=== PATIENT | female | born 1975 ===

== ENCOUNTER 2016-08-31 20:15 | Emergency (ER) | payer OTHER ==
[2016-08-31 20:32] VITALS: BP 137/81; PULSE 84; RESP 20; TEMP 98.1; O2SAT 99
[2016-08-31] MEDS ORDERED: Dexamethasone 4 mg/1 ml IM STA (21:03)
[2016-08-31] MEDS ORDERED: Dexamethasone 4 mg/1 ml ONE (21:06)
--- NOTE | 2016-08-31 21:43 | C.PDOC ---
History Of Present Illness 40 year old female with a history of Lupus and currently not on medications, presents to the ED with complaints of a rash to her face and pain to her left neck and left shoulder for the past 2 days. Patient states the pain is worse with movement of her left shoulder and neck. Denies trauma, chest pain, SOB, numbness, weakness, or any other complaints at this time. Time Seen by Provider: 08/31/16 20:35 Chief Complaint (Nursing): Back Pain History Per: Patient History/Exam Limitations: no limitations Onset/Duration Of Symptoms: Days Current Symptoms Are (Timing): Still Present Quality Of Discomfort: "Pain" Associated Symptoms: None Exacerbating Factor(s): Movement Recent travel outside of the [place]: No Past Medical History Reviewed: Historical Data, Nursing Documentation, Vital Signs Vital Signs: Last Vital Signs Temp 98.1 F 08/31/16 20:31 Pulse 84 08/31/16 20:31 Resp 20 08/31/16 20:31 BP 137/81 08/31/16 20:31 Pulse Ox 99 09/01/16 02:30 - Medical History PMH: Asthma Surgical History: No Surg Hx Family History: States: No Known Family Hx - Social History Hx Tobacco Use: Yes Hx Alcohol Use: No Hx Substance Use: No - Immunization History Hx Tetanus Toxoid Vaccination: No Hx Influenza Vaccination: No Hx Pneumococcal Vaccination: No Review Of Systems Except As Marked, All Systems Reviewed And Found Negative. Constitutional: Negative for: Fever, Chills Cardiovascular: Negative for: Chest Pain Respiratory: Negative for: Shortness of Breath Musculoskeletal: Positive for: Neck Pain (+Left neck pain), Shoulder Pain (+ Left shoulder pain) Skin: Positive for: Rash (+Rash to face) Neurological: Negative for: Weakness, Numbness Physical Exam - Physical Exam Appears: Non-toxic, No Acute Distress Skin: Warm, Dry, Rash (+Malar rash to the bilateral cheeks) Head: Atraumatic, Normacephalic Eye(s): bilateral: Normal Inspection Oral Mucosa: Moist Neck: No Midline Cervical Tenderness, Paracervical Tenderness (+Left sided paracervical tenderness), Supple Chest: Symmetrical, No Deformity Cardiovascular: Rhythm Regular Respiratory: Normal Breath Sounds, No Accessory Muscle Use, No Rales, No Rhonchi , No Wheezing Gastrointestinal/Abdominal: Soft, No Tenderness Extremity: No Normal ROM (Limited ROM to the left shoulder secondary to pain), Capillary Refill (< 2 seconds), No Deformity, No Swelling Pulses: Left Radial: Normal, Right Radial: Normal Neurological/Psych: Oriented x3, Normal Speech, Normal Cognition, Normal Sensation Gait: Steady ED Course And Treatment O2 Sat by Pulse Oximetry: 99 (Room air) Pulse Ox Interpretation: Normal Medical Decision Making Medical Decision Making: Plan: Decadron Toradol Reassess Progress: On re-exam, the patient reports improvement of symptoms. Lungs remain CTA, heart is RRR, airways are patent. Abdomen is soft, non-tender and the patient tolerating PO well. Follow up with the medical doctor within 1-2 days without fail. Return if worsened. Disposition - Disposition Referrals: Hiwot Chairez MD [Staff Provider] - Miguel Elizabeth MD [Medical Doctor] - Disposition: HOME/ ROUTINE Disposition Time: 21:41 Condition: GOOD Additional Instructions: Follow up with the Recycling Assistant within 1-2 days without fail. Return if worsened. Prescriptions: Cyclobenzaprine [Flexeril] 5 mg PO TID #21 tab Naproxen [Naprosyn] 500 mg PO BID #20 tab predniSONE [Prednisone] 20 mg PO BID #10 tab Instructions: Autoimmune Disease (ED) - Clinical Impression Clinical Impression: Systemic lupus erythematosus arthritis, Neck pain - PA / LOAN ADVISER / Resident Statement MD/DO has reviewed & agrees with the documentation as recorded. - Scribe Statement The provider has reviewed the documentation as recorded by the Scribe Perry Johnson. All medical record entries made by the Scribe were at my direction and personally dictated by me. I have reviewed the chart and agree that the record accurately reflects my personal performance of the history, physical exam, medical decision making, and the department course for this patient. I have also personally directed, reviewed, and agree with the discharge instructions and disposition.
== END 2016-08-31 22:14 | disposition home or self-care (01) ==
LOC: C.ER 20:15
DX: M32.9 Systemic lupus erythematosus, unspecified (principal); M13.88 Other specified arthritis, other site; M54.2 Cervicalgia
CPT/HCPCS: 96372; 99283; J1100; J1885

== ENCOUNTER 2017-01-01 21:57 | Emergency (ER) | payer OTHER ==
[2017-01-01 22:41] VITALS: BP 123/87; PULSE 95; RESP 16; TEMP 98; O2SAT 98
== END 2017-01-01 23:10 | disposition left against medical advice (07) ==
LOC: C.ER 21:57
DX: M79.606 Pain in leg, unspecified (principal); Z02.9 Encounter for administrative examinations, unspecified

== ENCOUNTER 2017-09-14 16:12 | Emergency (ER) | payer OTHER ==
[2017-09-14 16:21] VITALS: BMI 29.2
[2017-09-14 16:26] VITALS: O2SAT 100
[2017-09-14] MEDS ORDERED: Sodium Chloride 0.9% 1,000 ML IV ONE (16:33)
[2017-09-14 16:40] LABS: BASO # 0.1 K/uL (0.0-0.2); BASO % 0.7 % (0.0-2.0); EOS # 0.2 K/uL (0.0-0.7); EOS % 2.3 % (0.0-4.0); HEMOGLOBIN 14.4 g/dL (11.0-16.0); LYMPH # 2.3 K/uL (1.0-4.3); LYMPH % 26.6 % (20.0-40.0); MEAN CELL VOLUME 90.7 fL (81.0-99.0); MEAN CORPUSCULAR HEMOGLOBIN 30.9 pg (27.0-31.0); MEAN CORPUSCULAR HGB CONC 34.1 g/dL (33.0-37.0); MEAN PLATELET VOLUME 6.8 fL (7.2-11.7); MONO # 0.5 K/uL (0.0-0.8); NEUT # 5.5 K/uL (1.8-7.0); NEUT % 64.4 % (50.0-75.0); RBC 4.66 Mil/uL (3.80-5.20); RED CELL DISTRIBUTION WIDTH 13.9 % (11.5-14.5); WHITE BLOOD COUNT 8.5 K/uL (4.8-10.8)
[2017-09-14] MEDS ORDERED: Sodium Chloride 0.9% 1,000 ML ONE (16:42)
[2017-09-14 16:52] LABS: PROTHROMBIN TIME 11.7 SECONDS (9.7-12.2)
[2017-09-14 16:53] LABS: ALB/GLOB RATIO 1.2 (1.0-2.1); ALBUMIN 4.1 g/dL (3.5-5.0); ALT/SGPT 20 U/L (9-52); AST/SGOT 21 U/L (14-36); BLOOD UREA NITROGEN 8 mg/dL (7-17); CALCIUM 8.8 mg/dl (8.6-10.4); GFR AFRICAN-AMERICAN > 60; GFR NON-AFRICAN AMERICAN > 60
--- NOTE | 2017-09-14 17:11 | RAD ---
PROCEDURE: CHEST RADIOGRAPH, 1 VIEW HISTORY: SOB COMPARISON: Comparison chest 06/08/2013 FINDINGS: LUNGS: Poor inspiration with low lung volumes, crowded bronchovascular markings and mild bibasilar atelectasis. The interstitial markings are also slightly increased and coarsened which may be secondary to poor inspiration however rule out sequela of reactive/ inflammatory airway disease or viral illness. PLEURA: No pneumothorax or pleural fluid seen. CARDIOVASCULAR: Normal. OSSEOUS STRUCTURES: No significant abnormalities. VISUALIZED UPPER ABDOMEN: Normal. OTHER FINDINGS: None. IMPRESSION: Poor inspiration with low lung volumes, crowded bronchovascular markings and mild bibasilar atelectasis. The interstitial markings are also slightly increased and coarsened which may be secondary to poor inspiration however rule out sequela of reactive/ inflammatory airway disease or viral illness.
--- NOTE | 2017-09-14 17:53 | C.PDOC ---
History Of Present Illness 41yo female, presents to the emergency department with complaints of left chest discomfort intermittently for many years. Patient also notes minor dysfunctional uterine bleeding x3 weeks. States she felt dizzy today, and developed weakness, prompting visit. Patient has had multiple prior evaluations for same complaint. Time Seen by Provider: 09/14/17 16:26 Chief Complaint (Nursing): Chest Pain Past Medical History Vital Signs: Last Vital Signs Temp 99.1 F 09/14/17 17:59 Pulse 80 09/14/17 17:59 Resp 18 09/14/17 17:59 BP 126/85 09/14/17 17:59 Pulse Ox 100 09/14/17 17:59 - Medical History PMH: Asthma Surgical History: Tonsillectomy Family History: States: Unknown Family Hx - Social History Hx Tobacco Use: Yes Hx Alcohol Use: No Hx Substance Use: No - Immunization History Hx Tetanus Toxoid Vaccination: No Hx Influenza Vaccination: No Hx Pneumococcal Vaccination: No Review Of Systems Constitutional: Negative for: Fever Cardiovascular: Positive for: Chest Pain (left sided). Negative for: Palpitations Respiratory: Negative for: Shortness of Breath Gastrointestinal: Negative for: Vomiting Genitourinary: Positive for: Other (uterine bleeding ) Neurological: Positive for: Weakness, Dizziness. Negative for: Headache Physical Exam - Physical Exam Appears: Non-toxic, No Acute Distress Skin: Warm, Dry, No Rash Head: Normacephalic Eye(s): bilateral: PERRL Nose: Normal Oral Mucosa: Moist Lips: Normal Appearing Neck: Normal ROM Cardiovascular: Rhythm Regular, No Murmur Respiratory: Normal Breath Sounds, No Accessory Muscle Use Extremity: Normal ROM, No Deformity, No Swelling Neurological/Psych: Oriented x3, Normal Speech ED Course And Treatment - Laboratory Results Result Diagrams: 09/14/17 16:37 09/14/17 16:37 Lab Interpretation: Normal ECG: Interpreted By Me ECG Rhythm: Sinus Rhythm ECG Interpretation: Normal Rate From EC O2 Sat by Pulse Oximetry: 100 (RA) Pulse Ox Interpretation: Normal - Radiology CXR: Interpreted by Me CXR Interpretation: Yes: No Acute Disease Progress Note: IVF Reevaluation Time: 17:54 Reassessment Condition: Improved (sleeping comfortably) Medical Decision Making Medical Decision Making: vague CP, many prior presentations for same: anxiety vs GERD HGB 14.4, no sig drop to support significant DUB x 3 weeks. Disposition Doctor Will See Patient In The: Office Counseled Patient/Family Regarding: Studies Performed, Diagnosis - Disposition Referrals: [facility] [Outside] [email or web address] [Outside] Disposition: HOME/ ROUTINE Disposition Time: 17:54 Condition: GOOD Additional Instructions: normal evaluation, HGB 14.4 is normal follow-up with TEMPLATE STORAGE CLERK as needed Instructions: Acid Reflux (Gastroesophageal Reflux Disease), Adult (DC) Forms: [employer] (Indonesian) - Clinical Impression Clinical Impression: Chest discomfort, DUB (dysfunctional uterine bleeding) - Scribe Statement The provider has reviewed the documentation as recorded by the Scribe (Cong Ortiz) All medical record entries made by the Scribe were at my direction and personally dictated by me. I have reviewed the chart and agree that the record accurately reflects my personal performance of the history, physical exam, medical decision making, and the department course for this patient. I have also personally directed, reviewed, and agree with the discharge instructions and disposition.
[2017-09-14 18:00] VITALS: BP 126/85; PULSE 80; RESP 18; TEMP 99.1
--- NOTE | 2017-09-17 22:08 | CARD ---
APPROVED REPORT EKG Measurement Heart [id number] <Conclusion> Normal sinus rhythm Normal ECG
== END 2017-09-14 18:01 | disposition home or self-care (01) ==
LOC: C.ER 16:12
DX: N93.8 Other specified abnormal uterine and vaginal bleeding (principal); R07.89 Other chest pain; Z72.0 Tobacco use
CPT/HCPCS: 71045; 80053; 83880; 84484; 85025; 85610; 85730; 93005; 96360; 99285; J7040

== ENCOUNTER 2017-11-24 07:16 | Emergency (ER) | payer OTHER ==
[2017-11-24 07:16] VITALS: BMI 29.2
[2017-11-24 07:31] VITALS: BP 131/89; PULSE 80; RESP 18; TEMP 97.9; O2SAT 99
--- NOTE | 2017-11-24 07:49 | C.PDOC ---
History Of Present Illness 41 yo female w/PMHx of SLE come in for evaluation of gradual onset of facial swelling, B/L hands swelling developed since yesterday. Pt has known allergy to shellfish but denies any known exposure. Pt sts, " had sandwich at [employer] and when I was eating it my mouth and tongue felt funny already". Pt admits, took Benadryl at home yesterday without significant improvement. Otherwise, pt denies fever, chills, recent illness or new medication use, throat tightness or swelling, drooling, dysphagia, dyspnea, CP, SOB, wheezing, cough, abd. pain, N?V /D, denies any other active complaints. Ambulate to ED for evaluation, not in any apparent distress. Time Seen by Provider: 11/24/17 07:19 Chief Complaint (Nursing): Allergic Reaction History Per: Patient Past Medical History Reviewed: Historical Data, Nursing Documentation, Vital Signs Vital Signs: Last Vital Signs Temp 97.9 F 11/24/17 07:28 Pulse 80 11/24/17 07:28 Resp 18 11/24/17 07:28 BP 131/89 11/24/17 07:28 Pulse Ox 99 11/24/17 07:28 - Medical History PMH: Asthma Other PMH: SLE Surgical History: Tonsillectomy Family History: States: Unknown Family Hx - Social History Hx Tobacco Use: Yes Hx Alcohol Use: No Hx Substance Use: No - Immunization History Hx Tetanus Toxoid Vaccination: No Hx Influenza Vaccination: No Hx Pneumococcal Vaccination: No Review Of Systems Except As Marked, All Systems Reviewed And Found Negative. Constitutional: Negative for: Fever, Chills Eyes: Positive for: Other (periorbital edema B/L). Negative for: Vision Change ENT: Positive for: Mouth Swelling (B/L lips). Negative for: Ear Discharge, Nose Discharge, Nose Congestion, Throat Pain, Throat Swelling Cardiovascular: Negative for: Chest Pain Respiratory: Negative for: Cough, Shortness of Breath, Wheezing Gastrointestinal: Negative for: Nausea, Vomiting, Abdominal Pain, Diarrhea Genitourinary: Negative for: Dysuria Skin: Negative for: Rash Neurological: Negative for: Headache, Dizziness Physical Exam - Physical Exam Appears: Well, Non-toxic, No Acute Distress Skin: Normal Color, Warm, No Rash Head: Normacephalic Eye(s): bilateral: PERRL, EOMI (no pain or limitation on extraocular movement B/ L), Other (mild periorbital edema, no erythema, no conjunctival injection or discharge.) Ear(s): Bilateral: Normal Nose: No Flaring, No Discharge Oral Mucosa: Moist, No Drooling, No Trismus Tongue: No Swelling Lips: Swelling (mild diffuse edema upper and lower) Throat: No Erythema, No Drooling, Other (uvula midline, no edema.) Neck: Trachea Midline, Supple Chest: Symmetrical Cardiovascular: Rhythm Regular Respiratory: No Decreased Breath Sounds, No Accessory Muscle Use, No Rales, No Rhonchi, No Stridor, No Wheezing Gastrointestinal/Abdominal: Soft, No Tenderness, No Distention, No Guarding Back: No CVA Tenderness Extremity: Normal ROM, No Deformity, No Swelling Neurological/Psych: Oriented x3, Normal Speech ED Course And Treatment O2 Sat by Pulse Oximetry: 99 Pulse Ox Interpretation: Normal Progress Note: On re-eval, pt is afebrile, hemodynamicaly stable. Non-toxic. PulsEOx 99% RA. ENT: no acute findings. neck: SUpple, (-) JVD, (-) carotid bruits B/L. Lungs: CTA B/L, BS equal B/L. Abd: benign. Neuorlogicaly intact. Pt has clinical finidngs c/w angioedema. Pt advised. ref. to F/u with PMD, cardiovascular surgical tech in 2 -3 days for re-eavl. return if any new changes. Disposition Counseled Patient/Family Regarding: Diagnosis, Need For Followup, Rx Given - Disposition Referrals: [facility] [Outside] Disposition: HOME/ ROUTINE Disposition Time: 07:45 Condition: STABLE Additional Instructions: Avoid food, drink possible cause allergic reaction Take medication as prescribed Follow up with PMD, Site Director in 2-3 days for re-evaluation. return to ED if any worsening or new changes. Prescriptions: DiphenhydrAMINE [Benadryl] 25 mg PO BID #10 cap Famotidine [Pepcid] 20 mg PO BID #10 tab Prednisone [Deltasone] 40 mg PO DAILY #6 tablet Instructions: Angioedema (DC) - Clinical Impression Clinical Impression: Angioedema
== END 2017-11-24 08:07 | disposition home or self-care (01) ==
LOC: C.ER 07:16
DX: T78.3XXA Angioneurotic edema, initial encounter (principal)

== ENCOUNTER 2017-12-07 12:11 | Emergency (ER) | payer OTHER ==
[2017-12-07 12:11] VITALS: BMI 29.2
[2017-12-07 12:35] VITALS: BP 128/76; PULSE 88; RESP 18; TEMP 98.1; O2SAT 95
--- NOTE | 2017-12-07 13:39 | C.PDOC ---
Time Seen by Provider: 12/07/17 12:39 Chief Complaint (Nursing): Headache Past Medical History Vital Signs: Last Vital Signs Temp 98.1 F 12/07/17 12:32 Pulse 88 12/07/17 12:32 Resp 18 12/07/17 12:32 BP 128/76 12/07/17 12:32 Pulse Ox 95 12/13/17 19:28 - Medical History PMH: Asthma Surgical History: Tonsillectomy Family History: States: Unknown Family Hx - Social History Hx Tobacco Use: Yes Hx Alcohol Use: No Hx Substance Use: No - Immunization History Hx Tetanus Toxoid Vaccination: No Hx Influenza Vaccination: No Hx Pneumococcal Vaccination: No ED Course And Treatment O2 Sat by Pulse Oximetry: 95 Medical Decision Making Medical Decision Making: pt not found on stretcher assigned. lwbs Disposition - Disposition Disposition: LEFT W/O BEING SEEN - ER ONLY Disposition Time: 13:05 Condition: UNKNOWN Forms: [employer] (Chilean) - Clinical Impression Clinical Impression: Patient left without being seen, Headache
== END 2017-12-07 13:01 | disposition left against medical advice (07) ==
LOC: C.ER 12:11
DX: Z02.89 Encounter for other administrative examinations (principal); R51 Headache

== ENCOUNTER 2018-01-21 20:52 | Emergency (ER) | payer OTHER ==
[2018-01-21 20:52] VITALS: BMI 29.2
[2018-01-21 21:11] VITALS: RESP 20; TEMP 98.3
--- NOTE | 2018-01-21 21:36 | C.PDOC ---
History Of Present Illness 42 y/o female with a hx of lupus, presents to the ER today after questionable seizure. Patient reports she was cooking dinner and the next thing she remembers is waking up on the ground. Spouse reports he watched the patient fall to the ground and begin shaking. He reports the patient then stopped shaking, opened eyes, and was confused for a prolonged period of time. Denies any urinary/bowel incontinence or tongue biting. Denies history of seizures. Reports history of chronic headaches that she has never been evaluated for. Denies daily alcohol use. Denies any drug use. Reports that she has at baseline today. Denies fever, cough,uri, nausea/vomiting, focal weakness. Time Seen by Provider: 01/21/18 20:56 Chief Complaint (Nursing): Seizure History Per: Patient History/Exam Limitations: no limitations Recent Seizure Activity Began: Just Before Arrival Number Of Seizures: One Precipitating Factor(s): None Additional History Per: Family Past Medical History Reviewed: Historical Data, Nursing Documentation, Vital Signs Vital Signs: Last Vital Signs Temp 98.3 F 01/21/18 21:02 Pulse 98 H 01/21/18 21:02 Resp 20 01/21/18 21:02 BP 140/88 01/21/18 21:02 Pulse Ox 96 01/22/18 00:44 - Medical History PMH: Asthma Denies: Seizures Surgical History: Tonsillectomy Family History: States: Unknown Family Hx - Social History Hx Tobacco Use: Yes Hx Alcohol Use: No Hx Substance Use: No (denies) - Immunization History Hx Tetanus Toxoid Vaccination: No Hx Influenza Vaccination: No Hx Pneumococcal Vaccination: No Review Of Systems Except As Marked, All Systems Reviewed And Found Negative. Constitutional: Negative for: Fever Eyes: Negative for: Vision Change ENT: Negative for: Other (tongue biting) Cardiovascular: Negative for: Chest Pain Respiratory: Negative for: Shortness of Breath Genitourinary: Negative for: Incontinence Musculoskeletal: Negative for: Back Pain Skin: Negative for: Lesions Neurological: Positive for: Seizures. Negative for: Weakness, Numbness, Incoordination, Change in Speech, Dizziness Physical Exam - Physical Exam Appears: Non-toxic, No Acute Distress Skin: Normal Color, Warm, Dry, No Ecchymosis Head: Atraumatic, Normacephalic, No Swelling, No Laceration Eye(s): bilateral: Normal Inspection (no nystagmus), PERRL, EOMI Nose: Normal Oral Mucosa: Moist Tongue: Normal Appearing, No Bite Teeth: Normal Dentition Neck: Normal ROM, No Midline Cervical Tenderness, Supple Chest: Symmetrical Cardiovascular: Rhythm Regular, No Murmur Respiratory: Normal Breath Sounds, No Rhonchi, No Wheezing Gastrointestinal/Abdominal: Soft, No Tenderness, No Distention Back: Normal Inspection, No Vertebral Tenderness Extremity: Bilateral: Atraumatic, Normal Color And Temperature, Normal ROM Pulses: Left Dorsalis Pedis: Normal, Right Dorsalis Pedis: Normal Neurological/Psych: Oriented x3, Normal Speech, Normal Cranial Nerves (2-12 intact), Normal Motor, Normal Sensation, Other (No focal deficits) Gait: Steady ED Course And Treatment - Laboratory Results Result Diagrams: 01/21/18 21:37 01/21/18 21:37 O2 Sat by Pulse Oximetry: 96 (RA) Pulse Ox Interpretation: Normal Medical Decision Making Medical Decision Making: Impression: New-onset seizures Initial Plan: --EKG --CT Head w/o contrast --Blood work --Chest X-Ray Patient instructed on the importance of not driving until after follow up with neurology. 12:20 EKG shows NSR at 78bpm with normal intervals and no st changes. Electrolytes WNL. Trop x [address] head negative. Spoke to Dr. Hudson who reports that he can see the patient in the office on or saturday. Disposition - Disposition Referrals: Nick Hudson MD [Staff Provider] - Disposition: HOME/ ROUTINE Disposition Time: 00:21 Condition: GOOD Additional Instructions: NO DRIVING UNTIL CLEARED BY NEUROLOGY TO DRIVE. Follow-up with neurology within 2 days. Return to ED if condition worsens. Instructions: Seizures, Adult (DC) Forms: [employer] (New Zealander) - Clinical Impression Clinical Impression: Seizure - Scribe Statement The provider has reviewed the documentation as recorded by the Scribe (Gracie Nelson) Provider Attestation: All medical record entries made by the Scribe were at my direction and personally dictated by me. I have reviewed the chart and agree that the record accurately reflects my personal performance of the history, physical exam, medical decision making, and the department course for this patient. I have also personally directed, reviewed, and agree with the discharge instructions and disposition.
[2018-01-21 21:42] LABS: BASO # 0.1 K/uL (0.0-0.2); BASO % 0.5 % (0.0-2.0); EOS # 0.2 K/uL (0.0-0.7); EOS % 2.2 % (0.0-4.0); HEMOGLOBIN 13.6 g/dL (11.0-16.0); LYMPH # 2.6 K/uL (1.0-4.3); LYMPH % 24.3 % (20.0-40.0); MEAN CELL VOLUME 90.4 fL (81.0-99.0); MEAN CORPUSCULAR HEMOGLOBIN 30.6 pg (27.0-31.0); MEAN CORPUSCULAR HGB CONC 33.9 g/dL (33.0-37.0); MEAN PLATELET VOLUME 6.9 fL (7.2-11.7); MONO # 0.7 K/uL (0.0-0.8); MONO % 6.9 % (0.0-10.0); NEUT # 7.2 K/uL (1.8-7.0); NEUT % 66.1 % (50.0-75.0); RBC 4.45 Mil/uL (3.80-5.20); RED CELL DISTRIBUTION WIDTH 13.8 % (11.5-14.5); WHITE BLOOD COUNT 10.8 K/uL (4.8-10.8)
[2018-01-21 22:05] LABS: ALB/GLOB RATIO 1.5 (1.0-2.1); ALBUMIN 4.4 g/dL (3.5-5.0); ALT/SGPT 20 U/L (9-52); AST/SGOT 27 U/L (14-36); BLOOD UREA NITROGEN 14 mg/dL (7-17); CALCIUM 9.4 mg/dl (8.6-10.4); GFR NON-AFRICAN AMERICAN > 60
[2018-01-22 01:15] VITALS: BP 136/72; PULSE 92; O2SAT 98
--- NOTE | 2018-01-22 06:52 | CT ---
Date of service: 01/21/2018 PROCEDURE: CT HEAD WITHOUT CONTRAST. HISTORY: seizure COMPARISON: None available. TECHNIQUE: Axial computed tomography images were obtained through the head/brain without intravenous contrast. Radiation dose: Total exam DLP = 772 mGy-cm. This CT exam was performed using one or more of the following dose reduction techniques: Automated exposure control, adjustment of the mA and/or kV according to patient size, and/or use of iterative reconstruction technique. FINDINGS: HEMORRHAGE: No intracranial hemorrhage. BRAIN: No mass effect or edema. No atrophy or chronic microvascular ischemic changes. VENTRICLES: Unremarkable. No hydrocephalus. CALVARIUM: Unremarkable. PARANASAL SINUSES: Mild mucosal thickening of the ethmoid air cells. MASTOID AIR CELLS: Unremarkable as visualized. No inflammatory changes. OTHER FINDINGS: None. IMPRESSION: No acute intracranial abnormality. If symptoms persists, consider correlation with MRI. These findings were preliminarily reported at 12:40 a.m. on 01/22/[address] Elizabeth Robledo from [facility].
--- NOTE | 2018-01-22 08:36 | RAD ---
Date of service: 01/21/2018 HISTORY: seizure COMPARISON: 06/18/2013. FINDINGS: LUNGS: The lungs are well inflated and clear. PLEURA: No significant pleural effusion identified, no pneumothorax apparent. CARDIOVASCULAR: Normal. OSSEOUS STRUCTURES: No significant abnormalities. VISUALIZED UPPER ABDOMEN: Normal. OTHER FINDINGS: None. IMPRESSION: No active pulmonary disease.
--- NOTE | 2018-01-22 23:56 | CARD ---
APPROVED REPORT Date of service: 01/21/2018 EKG Measurement Heart [id number] <Conclusion> Normal sinus rhythm Normal ECG
== END 2018-01-22 01:16 | disposition home or self-care (01) ==
LOC: C.ER 20:52
DX: R56.9 Unspecified convulsions (principal)

== ENCOUNTER 2018-01-22 11:07 | Emergency (ER) | payer OTHER ==
[2018-01-22 11:07] VITALS: BMI 29.2
[2018-01-22 11:16] VITALS: RESP 18
--- NOTE | 2018-01-22 12:25 | C.PDOC ---
History Of Present Illness 42 y/o female presents to ED with c/o left sided headache since earlier today. Patient states she was seen at ED yesterday for new on set seizure and was discharged from hospital with follow up with Dr. Hudson. Patient reports fatigue and photophobia associated with tearing eyes. Patient denies nausea, vomiting, new seizure episode or any other complaints at this time. Time Seen by Provider: 01/22/18 11:40 Chief Complaint (Nursing): Headache History Per: Patient History/Exam Limitations: no limitations Onset/Duration Of Symptoms: Days Current Symptoms Are (Timing): Still Present Quality: "Pain" Associated Symptoms: Photophobia Past Medical History Reviewed: Historical Data, Nursing Documentation, Vital Signs Vital Signs: Last Vital Signs Temp 98 F 01/22/18 14:15 Pulse 86 01/22/18 14:15 Resp 18 01/22/18 14:15 BP 136/74 01/22/18 14:15 Pulse Ox 100 01/24/18 18:05 - Medical History PMH: Asthma Surgical History: Tonsillectomy Family History: States: No Known Family Hx - Social History Hx Tobacco Use: Yes Hx Alcohol Use: No Hx Substance Use: No (denies) - Immunization History Hx Tetanus Toxoid Vaccination: No Hx Influenza Vaccination: No Hx Pneumococcal Vaccination: No Review Of Systems Except As Marked, All Systems Reviewed And Found Negative. Neurological: Positive for: Headache Physical Exam - Physical Exam Appears: Non-toxic, No Acute Distress Skin: Warm, Dry, No Rash Head: Atraumatic, Normacephalic Eye(s): bilateral: PERRL, EOMI, Other (tearing eyes) Oral Mucosa: Moist Neck: Supple Cardiovascular: Rhythm Regular Respiratory: Normal Breath Sounds, No Rales, No Rhonchi, No Wheezing Gastrointestinal/Abdominal: Soft, No Tenderness, No Guarding, No Rebound Neurological/Psych: Oriented x3, Normal Speech, Normal Cognition, Normal Motor, Normal Sensation ED Course And Treatment - Laboratory Results Result Diagrams: 01/22/18 13:19 01/22/18 13:19 O2 Sat by Pulse Oximetry: 100 (RA) Pulse Ox Interpretation: Normal Medical Decision Making Medical Decision Making: Assessment: Post seizure headache 1401 - patient states improvement. NO further headache. Noted to be eating pizza at bedside. Patient do not wish to stay in hospital and has a scheduled appointment with Dr. Gutierrez in 2 days. Headache wasn't first, worst or longest lasting headache. NO thunderclap association. Disposition Counseled Patient/Family Regarding: Studies Performed, Diagnosis, Need For Followup - Disposition Referrals: Nick Hudson MD [Staff Provider] - Disposition: HOME/ ROUTINE Disposition Time: 14:02 Condition: IMPROVED Additional Instructions: follow up with Dr. Hudson in 2 days as discussed call to make an appointment continue medications as home. return to ER if symptoms worsens or progress Instructions: Headache, Adult (DC) Forms: [employer] (Chinese), General Discharge Instructions - Clinical Impression Clinical Impression: Headache - Scribe Statement The provider has reviewed the documentation as recorded by the Scribe Talita Villatoro All medical record entries made by the Ivelisseibifeanyi were at my direction and personally dictated by me. I have reviewed the chart and agree that the record accurately reflects my personal performance of the history, physical exam, medical decision making, and the department course for this patient. I have also personally directed, reviewed, and agree with the discharge instructions and disposition.
[2018-01-22] MEDS ORDERED: Sodium Chloride 0.9% 1,000 ML IV ONE (12:35)
[2018-01-22] MEDS ORDERED: DiphenhydrAMINE 50 mg/ml Inj IVP STA (12:35)
[2018-01-22] MEDS ORDERED: DiphenhydrAMINE 50 mg/ml Inj ONE (12:50)
[2018-01-22] MEDS ORDERED: Sodium Chloride 0.9% 1,000 ML ONE (12:50)
[2018-01-22 13:02] LABS: SQUAMOUS EPITHIAL 4 /hpf (0-5); URINE BACTERIA RARE (<OCC); URINE BILIRUBIN NEGATIVE (NEGATIVE); URINE BLOOD 1+ (NEGATIVE); URINE CLARITY Clear (Clear); URINE COLOR Yellow (YELLOW); URINE GLUCOSE (UA) NORMAL (Normal); URINE LEUKOCYTE ESTERASE NEG Leu/uL (Negative); URINE PROTEIN NEGATIVE (NEGATIVE); URINE UROBILINOGEN NORMAL mg/dL (0.2-1.0)
[2018-01-22 13:35] LABS: BASO % 0.6 % (0.0-2.0); EOS # 0.2 K/uL (0.0-0.7); EOS % 2.1 % (0.0-4.0); HEMOGLOBIN 13.7 g/dL (11.0-16.0); LYMPH # 1.8 K/uL (1.0-4.3); LYMPH % 23.8 % (20.0-40.0); MEAN CELL VOLUME 90.1 fL (81.0-99.0); MEAN CORPUSCULAR HEMOGLOBIN 31.4 pg (27.0-31.0); MEAN CORPUSCULAR HGB CONC 34.8 g/dL (33.0-37.0); MEAN PLATELET VOLUME 7.1 fL (7.2-11.7); MONO # 0.6 K/uL (0.0-0.8); MONO % 7.4 % (0.0-10.0); NEUT % 66.1 % (50.0-75.0); RBC 4.37 Mil/uL (3.80-5.20); WHITE BLOOD COUNT 7.6 K/uL (4.8-10.8)
[2018-01-22 13:51] LABS: ALB/GLOB RATIO 1.3 (1.0-2.1); ALBUMIN 4.1 g/dL (3.5-5.0); ALT/SGPT 18 U/L (9-52); AST/SGOT 24 U/L (14-36); BLOOD UREA NITROGEN 10 mg/dL (7-17); CALCIUM 9.2 mg/dl (8.6-10.4); GFR NON-AFRICAN AMERICAN > 60
[2018-01-22 14:16] VITALS: BP 136/74; PULSE 86; TEMP 98
[2018-01-24 18:05] VITALS: O2SAT 100
== END 2018-01-22 14:15 | disposition home or self-care (01) ==
LOC: C.ER 11:07
DX: R51 Headache (principal); Z72.0 Tobacco use
CPT/HCPCS: 80053; 81001; 85025; 96374; 96375; 99284; J1200; J2765; J7030

== ENCOUNTER 2018-06-21 17:06 | Emergency (ER) | payer OTHER ==
[2018-06-21 17:07] VITALS: BMI 29.2
[2018-06-21 17:24] VITALS: BP 155/84; PULSE 103; RESP 19; TEMP 98.2; O2SAT 99
--- NOTE | 2018-06-21 19:12 | C.PDOC ---
History Of Present Illness 42 y/o female presents to the ED complaining of 3 days of not feeling well. She complains of nasal congestion, rhinorrhea, and sneezing. No fevers or chills. States she works with a [employer], and one of the doctors prescribed her a z-pack which she began taking yesterday. She took 2 doses yesterday and 1 today with no relief. Patient reports PMHx of Lupus and is concerned about possibility of flu, prompting her to come in tonight. Additionally, patient notes on her way here she accidentally twisted the left ankle and is requesting to have it checked. She is able to ambulate with pain. Time Seen by Provider: 06/21/18 17:55 Chief Complaint (Nursing): Cough, Cold, Congestion History Per: Patient History/Exam Limitations: no limitations Onset/Duration Of Symptoms: Days (x 3) Current Symptoms Are (Timing): Still Present Reports Recently: Treated By A Physician Past Medical History Reviewed: Historical Data, Nursing Documentation, Vital Signs Vital Signs: Last Vital Signs Temp 98.2 F 06/21/18 17:22 Pulse 103 H 06/21/18 17:22 Resp 19 06/21/18 17:22 BP 155/84 H 06/21/18 17:22 Pulse Ox 99 06/21/18 17:22 - Medical History PMH: Asthma Denies: Seizures Surgical History: Tonsillectomy Family History: States: Unknown Family Hx - Social History Hx Tobacco Use: Yes Hx Alcohol Use: No Hx Substance Use: No (denies) - Immunization History Hx Tetanus Toxoid Vaccination: No Hx Influenza Vaccination: No Hx Pneumococcal Vaccination: No Review Of Systems Except As Marked, All Systems Reviewed And Found Negative. Constitutional: Negative for: Fever, Chills ENT: Positive for: Nose Discharge, Nose Congestion, Other (Sneezing). Negative for: Ear Pain Cardiovascular: Negative for: Chest Pain Respiratory: Positive for: Cough. Negative for: Shortness of Breath, Wheezing Gastrointestinal: Negative for: Vomiting, Abdominal Pain, Diarrhea Musculoskeletal: Positive for: Foot Pain (Left ankle) Skin: Negative for: Rash Neurological: Negative for: Weakness, Headache Physical Exam - Physical Exam Appears: Non-toxic, No Acute Distress Skin: Warm, Dry, No Rash Head: Atraumatic, Normacephalic Eye(s): bilateral: Normal Inspection, PERRL, EOMI Nose: Discharge (+ nasal congestion bilaterally) Oral Mucosa: Moist Neck: Normal ROM Chest: Symmetrical Cardiovascular: Rhythm Regular, No Murmur Respiratory: Normal Breath Sounds, No Rales, No Rhonchi, No Wheezing Extremity: Tenderness (to the lateral malleolus of left ankle), Capillary Refill (< 2 sec), No Deformity, No Swelling (or ecchymosis) Extremity: Left: Painful To Bear Weight Pulses: Left Dorsalis Pedis: Normal, Right Dorsalis Pedis: Normal Neurological/Psych: Oriented x3, Normal Motor, Normal Sensation ED Course And Treatment O2 Sat by Pulse Oximetry: 99 (RA) Pulse Ox Interpretation: Normal - Other Rad X-Ray Left Ankle X-Ray: Interpreted by Me, Viewed By Me Interpretation: No acute fracture or dislocation Progress Note: Flu swab negative, patient notified of results. Counseled patient regarding likely dx of viral illness. X-ray of left ankle reviewed, and is negative. Air cast applied to left ankle. Patient defers crutches at this time. Advised to follow up with orthopedist this week for further evaluation. Disposition - Disposition Disposition: HOME/ ROUTINE Disposition Time: 19:10 Condition: STABLE Additional Instructions: Follow up with PMD within 2-3 days. Return to ED if feel worse. 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 - Scribe Statement The provider has reviewed the documentation as recorded by the Ivelisseibifeanyi Nelson All medical record entries made by the Scribe were at my direction and personally dictated by me. I have reviewed the chart and agree that the record accurately reflects my personal performance of the history, physical exam, medical decision making, and the department course for this patient. I have also personally directed, reviewed, and agree with the discharge instructions and disposition.
--- NOTE | 2018-06-22 13:18 | RAD ---
Left ankle three views HISTORY: Injury. Comparison: None available. Findings: No evidence of acute displaced fracture or dislocation. Ankle mortise is maintained. Talar dome is intact. Plantar calcaneal spurring. Impression: Plantar calcaneal spurring. If pain persists, consider correlation with MRI.
== END 2018-06-21 19:35 | disposition home or self-care (01) ==
LOC: C.ER 17:06
DX: B34.9 Viral infection, unspecified (principal); S93.402A Sprain of unspecified ligament of left ankle, initial encounter; X50.9XXA Other and unspecified overexertion or strenuous movements or postures, initial encounter

== ENCOUNTER 2018-07-13 21:25 | Emergency (ER) | payer OTHER ==
[2018-07-13 21:25] VITALS: BMI 29.2
--- NOTE | 2018-07-13 22:14 | C.PDOC ---
History Of Present Illness 42 year old presents complaining of vaginal bleeding for the past 3 weeks. Patient also reports she has felt tired, she has a Hx of lupus and believes she is having a flare up. She usually has regular periods denies Hx of long period, fibroids, or enlarged uterus. On plaquenil for lupus. Time Seen by Provider: 07/13/18 21:48 Chief Complaint (Nursing): Female Genitourinary History Per: Patient History/Exam Limitations: no limitations Onset/Duration Of Symptoms: Days Current Symptoms Are (Timing): Still Present Recent travel outside of the [place]: No Past Medical History Reviewed: Historical Data, Nursing Documentation, Vital Signs Vital Signs: Last Vital Signs Temp 98.2 F 07/13/18 21:43 Pulse 85 07/13/18 21:43 Resp 20 07/13/18 21:43 BP 133/90 07/13/18 21:43 Pulse Ox 100 07/13/18 21:43 - Medical History PMH: Asthma Denies: Seizures Surgical History: Tonsillectomy Family History: States: Unknown Family Hx - Social History Hx Tobacco Use: Yes Hx Alcohol Use: No Hx Substance Use: No (denies) - Immunization History Hx Tetanus Toxoid Vaccination: No Hx Influenza Vaccination: No Hx Pneumococcal Vaccination: No Review Of Systems Except As Marked, All Systems Reviewed And Found Negative. Constitutional: Positive for: Other (Tired) Genitourinary: Positive for: Vaginal Bleeding Physical Exam - Physical Exam Appears: Non-toxic Skin: Normal Color, Warm, Dry, No Pale Head: Atraumatic, Normacephalic Eye(s): bilateral: Normal Inspection (NO pallor) Oral Mucosa: Moist Chest: Symmetrical, No Tenderness Cardiovascular: Rhythm Regular Respiratory: Other (NARD) Gastrointestinal/Abdominal: Soft, No Tenderness Back: No CVA Tenderness Neurological/Psych: Oriented x3, Normal Speech ED Course And Treatment - Laboratory Results Result Diagrams: 07/13/18 22:19 Lab Interpretation: Normal Urine POC: Negative O2 Sat by Pulse Oximetry: 100 (Room air) Pulse Ox Interpretation: Normal Medical Decision Making Medical Decision Making: Plan: * Blood work * Decadron * Toradol Disposition Counseled Patient/Family Regarding: Studies Performed, Diagnosis, Need For Followup - Disposition Referrals: [facility] [Other] [facility] [Outside] Disposition: HOME/ ROUTINE Disposition Time: 22:42 Condition: IMPROVED Instructions: Heavy Periods (DC) Forms: [facility] (Montserratian) - Clinical Impression Clinical Impression: DUB (dysfunctional uterine bleeding), Arthralgia - Scribe Statement The provider has reviewed the documentation as recorded by the Scribe Garrett Morgan All medical record entries made by the Scribe were at my direction and p ersonally dictated by me. I have reviewed the chart and agree that the record accurately reflects my personal performance of the history, physical exam, medical decision making, and the department course for this patient. I have also personally directed, reviewed, and agree with the discharge instructions and disposition.
[2018-07-13 22:23] LABS: BASO % 0.3 % (0.0-2.0); EOS # 0.2 K/uL (0.0-0.7); EOS % 1.6 % (0.0-4.0); HEMOGLOBIN 13.1 g/dL (11.0-16.0); LYMPH # 2.3 K/uL (1.0-4.3); LYMPH % 22.3 % (20.0-40.0); MEAN CORPUSCULAR HEMOGLOBIN 30.9 pg (27.0-31.0); MEAN CORPUSCULAR HGB CONC 33.2 g/dL (33.0-37.0); MEAN PLATELET VOLUME 6.8 fL (7.2-11.7); MONO # 0.8 K/uL (0.0-0.8); MONO % 7.4 % (0.0-10.0); NEUT # 7.1 K/uL (1.8-7.0); NEUT % 68.4 % (50.0-75.0); NRBC % 0.1 % (0.0-2.0); RBC 4.25 Mil/uL (3.80-5.20); RED CELL DISTRIBUTION WIDTH 13.8 % (11.5-14.5); WHITE BLOOD COUNT 10.4 K/uL (4.8-10.8)
[2018-07-13] MEDS ORDERED: Dexamethasone 4 mg/1 ml IVP ONE (22:45)
[2018-07-13 23:07] VITALS: BP 117/76; PULSE 66; RESP 18; TEMP 97.6; O2SAT 96
== END 2018-07-13 23:07 | disposition home or self-care (01) ==
LOC: C.ER 21:25
DX: N93.8 Other specified abnormal uterine and vaginal bleeding (principal); M25.50 Pain in unspecified joint
CPT/HCPCS: 81025; 85025; 96374; 96375; 99284; J1100; J1885

== ENCOUNTER 2018-10-12 17:03 | Emergency (ER) | payer OTHER ==
[2018-10-12 17:12] VITALS: BMI 27.4
[2018-10-12 17:35] VITALS: RESP 18
[2018-10-12] MEDS ORDERED: Lidocaine 5% Patch TD STA (17:47)
[2018-10-12] MEDS ORDERED: Lidocaine 5% Patch TD ONE (17:55)
--- NOTE | 2018-10-12 18:21 | C.PDOC ---
History Of Present Illness Patient is a 42 year old female, with a PMHx of lupus and is taking muscle relaxants, presents to the ED for evaluation of bilateral lower back pain that began 1 day ago. She states that it makes it hard for her to move and states that she has tried Ibuprofen without relief. She denies any numbness, weakness, tingling, bowel or bladder incontinence. Time Seen by Provider: 10/12/18 17:30 Chief Complaint (Nursing): Back Pain History Per: Patient History/Exam Limitations: no limitations Onset/Duration Of Symptoms: Days (1) Current Symptoms Are (Timing): Still Present Quality Of Discomfort: "Pain" Associated Symptoms: denies: Incontinence, New Weakness, New Numbness Exacerbating Factor(s): Movement Recent travel outside of the [place]: No Additional History Per: Patient Past Medical History Reviewed: Historical Data, Nursing Documentation, Vital Signs Vital Signs: Last Vital Signs Temp 98.6 F 10/12/18 17:11 Pulse 108 H 10/12/18 17:11 Resp 18 10/12/18 17:11 BP 129/89 10/12/18 17:11 Pulse Ox 99 10/12/18 17:11 Primary Care Provider: Eron Dixon - Medical History PMH: Asthma Denies: Seizures Surgical History: Tonsillectomy Family History: States: Unknown Family Hx - Social History Hx Tobacco Use: Yes Hx Alcohol Use: No Hx Substance Use: No (denies) - Immunization History Hx Tetanus Toxoid Vaccination: No Hx Influenza Vaccination: No Hx Pneumococcal Vaccination: No Review Of Systems Cardiovascular: Negative for: Chest Pain Respiratory: Negative for: Shortness of Breath Musculoskeletal: Positive for: Back Pain (bilateral lower back) Neurological: Negative for: Weakness, Numbness, Other (tingling) Physical Exam - Physical Exam Appears: Non-toxic, No Acute Distress Skin: Warm, Dry Head: Atraumatic, Normacephalic Eye(s): bilateral: Normal Inspection Back: Other (No midline tenderness. Bilateral lumbar paravertebral tenderness. Bilateral upper buttock tenderness. ) Neurological/Psych: Oriented x3, Normal Speech, Normal Cognition ED Course And Treatment O2 Sat by Pulse Oximetry: 99 (on RA) Pulse Ox Interpretation: Normal Medical Decision Making Medical Decision Making: Plan: Toradol 30mg IM Lidoderm 1ea TD POC Urine 1825 pt feeling better after toradol. d/c hme Disposition Counseled Patient/Family Regarding: Diagnosis, Need For Followup, Rx Given - Disposition Referrals: Eron Dixon MD [Medical Doctor] - Disposition: HOME/ ROUTINE Disposition Time: 18:25 Condition: GOOD Additional Instructions: Follow up with your doctor in a few days. Take patch off in 12 hours. Use ibuprofen 600 mg with food every 6-8 hours. Continue using Flexeril as prescribed. 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 - Scribe Statement The provider has reviewed the documentation as recorded by the Denise Owens All medical record entries made by the Ivelisseibifeanyi were at my direction and personally dictated by me. I have reviewed the chart and agree that the record accurately reflects my personal performance of the history, physical exam, medical decision making, and the department course for this patient. I have also personally directed, reviewed, and agree with the discharge instructions and disposition.
[2018-10-12 18:35] VITALS: BP 117/78; PULSE 79; TEMP 99.1
[2018-10-12 18:41] VITALS: O2SAT 99
== END 2018-10-12 18:35 | disposition home or self-care (01) ==
LOC: C.ER 17:03
DX: M62.830 Muscle spasm of back (principal); M32.9 Systemic lupus erythematosus, unspecified
CPT/HCPCS: 81025; 96372; 99284; J1885